=== PATIENT | female | born 1975 | race African-American/Black ===

== ENCOUNTER 2017-11-02 16:45 | Inpatient (IN) | payer OTHER ==
[2017-11-02] MEDS ORDERED: Morphine 4 MG/ML VIAL ONE ×2 (17:04→18:50)
[2017-11-02] MEDS ORDERED: Ondansetron HCl/PF 4 MG/2 ML Vial ONE (17:04)
--- NOTE | 2017-11-02 17:29 | RAD ---
EXAM: ONE VIEW CHEST 11/02/17 HISTORY: Sepsis. COMPARISON: None. FINDINGS: Normal cardiac silhouette. The pulmonary vessels and hilum are normal. Costophrenic angles are clear. No mass. No consolidation. Bilateral nipple shadows are noted. No pneumothorax or osseous abnormalit ies. IMPRESSION: No acute cardiopulmonary process. POS: [facility]
[2017-11-02 17:50] LABS: #Eosinphils 0.1 thou/uL (0.0-0.7); #Lymphocytes 1.7 thou/uL (1.20-3.40); #Neutrophils 10.6 thou/uL (1.40-6.50); %Basophils 0.2 % (0.0-1.0); %Eosinophils 0.5 % (0.0-10.0); %Lymphocytes 12.5 % (21.0-51.0); %Monocytes 7.5 % (0.0-10.0); Hematocrit 39.2 % (36.0-47.0); Mean Platelet Volume 6.9 fL (7.4-10.4); Red Blood Cell (RBC) Count 4.28 mill/uL (4.20-5.40); White Blood Cell (WBC) Count 13.3 thou/uL (4.8-10.8)
[2017-11-02 18:00] LABS: Lactic Acid - Sepsis 3.2 mmol/L (0.5-2.2)
[2017-11-02 18:03] LABS: ALT (SGPT) 91 U/L (8-55); AST (SGOT) 50 U/L (5-34); Alkaline Phosphatase 81 U/L (40-150); Anion Gap 13 mmol/L (10-20); BUN (Urea Nitrogen) 16 mg/dL (7.0-18.7); Bilirubin, Total 0.2 mg/dL (0.2-1.2); Calc. Creatinine Clearance 0 mL/min (70-130); Calcium 9.3 mg/dL (7.8-10.44); Carbon Dioxide 20 mmol/L (22-29); Chloride 110 mmol/L (98-107); Estimated GFR-MDRD 86; Globulin 3.5 g/dL (2.4-3.5); Protein, Total 7.4 g/dL (6.0-8.3)
--- NOTE | 2017-11-02 18:09 | CT ---
EXAM: ABDOMEN CT WITH CONTRAST PELVIC CT WITH CONTRAST 11/02/17 HISTORY: Persistent lower abdominal pain, x1 week. Constipation. Hypotension. COMPARISON: None. TECHNIQUE: An abdomen and pelvic CT are performed with IV contrast. Enteric contrast was not administered. Coron al reformatted images are submitted for interpretation. FINDINGS: ABDOMEN CT: The lung bases are clear. Heart size is within normal limits. No pericardial fluid. The descending t horacic aorta and abdominal aorta have an overall normal caliber. No periaortic fat stranding. Intra and extrahepatic portal vein is patent. Liver, spleen, pancreas, and adrenal glands have appropriate enhancement. Symmetric enhancement of the kidneys. Bilaterally, no obstructive uropathy. Decreased intra-abdominal fat limits evaluation for inflammatory change. No mesenteric mass, lymphade nopathy, free air or free fluid. Suboptimal evaluation of the alimentary canal due to the absence of oral contrast. There is mucosal thickening involving the gastric antrum and proximal duodenum. Correl ate for gastric ulcer and peptic ulcer disease. No evidence of bowel perforation. Multiple small jay l loops, normal in caliber. There appears to be fecalization of the terminal ileum, likely due to inc ompetent ileocecal valve, rather than obstruction. There is a tubular structure emanating from the ce francisca apex that is only partially visualized and may represent the appendix. No obvious inflammation. T here is fecal material in the cecum. Colon does not appear to be distended. The colon is difficult to evaluate. However, there does appear to be some mucosal thickening involving the sigmoid colon and r ectum. Correlate for possible proctitis. There is a ventral abdominal wall hernia containing mesenteric fat. There is edema involving the megan iated mesentery. No evidence of bowel herniation. The defect at the level of the peritoneal lining is approximately [address]: The urinary bladder is unremarkable. There is a heterogeneous appearing uterus. Hypodensity involvin g the lower uterus may represent a necrotic uterine leiomyoma measuring 2.7 x 2.3 cm. There is a hypo density in the left adnexa which may represent a left ovarian cyst, measuring 1.7 cm. There are no lytic or blastic lesions in the osseous structures. IMPRESSION: 1. Mucosal thickening involving the stomach and proximal duodenum. Correlate for gastritis versu s gastric ulcer and peptic ulcer disease. 2. Suggestion of normal caliber appendix. 3. Mucosal thickening involving the sigmoid colon and rectum. Correlate for proctitis. Evaluatio n of the entire alimentary canal is limited by lack of oral contrast and overall decrease intra-abdom inal fat. 4. Hypodensity involving the lower uterine segment which may represent a necrotic uterine leiomy max. Correlation made with pelvic ultrasound in 2012 does suggest a possible leiomyoma. 5. Ventral abdominal wall hernia containing mesenteric fat. There is edema, correlate for mesen teric ischemic. POS: [facility]
[2017-11-02] MEDS ORDERED: Piperacillin/Tazobactam 4.5 GM in Sodium Chloride 0.9% 100 ML IVPB SCH (19:15)
[2017-11-02] MEDS ORDERED: Ondansetron HCl/PF 4 MG/2 ML Vial IVP PRN (21:23)
[2017-11-02] MEDS ORDERED: Ondansetron ODT 4 MG TAB SL PRN (21:23)
[2017-11-02] MEDS: Dextrose 5 % And 0.9 % NaCl 1,000 ML IV SCH (22:01)
[2017-11-02 22:39] VITALS: BMI 20.6
[2017-11-03] MEDS ORDERED: Piperacillin/Tazobactam 3.375 GM in Sodium Chloride 0.9% 100 ML IVPB SCH ×2 (02:30→15:15)
[2017-11-03] MEDS: Morphine 2 mg/2ml in 0.9% NaCl PF SYRINGE IVP PRN ×2 (04:39→07:19)
[2017-11-03] MEDS: Dextrose 5 % And 0.9 % NaCl 1,000 ML IV SCH (05:42)
[2017-11-03] MEDS ORDERED: ISOVUE-370 76%-LOCM 1 ML ONE (10:04)
--- NOTE | 2017-11-03 10:50 | ULT ---
RIGHT UPPER QUADRANT ULTRASOUND: Date: 11-03-17 Comparison: None. History: Right upper quadrant pain. Technique: Multiplanar grayscale sonographic imaging of the right upper quadrant obtained. FINDINGS: The imaged pancreas is unremarkable, the tail partially obscured by bowel gas. There is a vague round hypoechoic lesion in the right lobe of the liver measuring in the 1.6 x 1.4 x 1.5 cm range. There is a subtle hyper enhancing lesion on the CT examination performed 11-02-17, likel y correlating with the sonographic lesion. The right 11.1 cm in craniocaudal dimension and demonstrates no stone, hydronephrosis or mass. Gallbladder wall is normal in thickness. There is trace fluid adjacent to the gallbladder. Sonographi c Suarez's sign is negative. No gallstones are seen. The CBD measures in the 6 mm range, within tonia l limits. IMPRESSION: 1. No evidence for cholelithiasis or gallbladder thickening. Trace pericholecystic fluid is noted. 2. Round 1.6 cm hypoechoic lesion within the right lobe of the liver. This appears to represent a hyp erenhancing lesion on the 11-02-17 CT exam. The most likely consideration is a flash filling hemangiom a. In order to exclude a more aggressive malignant process, a short term follow up ultrasound is noemí man in 3 months. Code T POS: [facility]
--- NOTE | 2017-11-03 10:59 | ULT ---
PELVIC ULTRASOUND INCLUDING TRANSABDOMINAL AND TRANSVAGINAL IMAGING VASCULAR DUPLEX WITH COLOR AND SPECTRAL DOPPLER IMAGING: History: 42-year-old female with lower abdominal pain. Comparison: 12-14-11 FINDINGS: The uterus measures 11.2 x 7.0 x 5.8 cm. Endometrium approximates 1.3 cm. Right ovary measures 1.9 x 2.1 x 3.2 cm. Left ovary measures 1.6 x 2.1 x 2.9 cm. There is minimal fluid in the endometrium with a 1.7 x 2.3 x 2.4 cm diameter cystic focus in the uterine segment which appears to be contiguous to t he lower endometrial canal. This does correspond to the area of concern on the prior CT scan of . In review of prior ultrasound examination from 12-14-11, there was no evidence for a nabothian cys t in this region. It certainly does not look like a necrotic tumor although I am not certain as to th e etiology of this. Three to six month follow up pelvic ultrasound examination might be considered to evaluate for stability. Vascular duplex with color and spectral doppler imaging demonstrates vascular flow to both ovaries. IMPRESSION: Cystic focus in the lower uterine segment which appears to be contiguous with the lower endometrial c anal, not definitely seen on prior ultrasound examination from 2011, but does correspond to the area of low attenuation seen on prior CT scan of 11-02. I am not certain as to the etiology of this. I feel that if this would represent a nabothian cyst that it would have been seen on the prior study. Amberly ivably this could represent some other type of focal outpouching of the endometrial canal, but it cer tainly does not have an appearance suggesting that of necrotic tumor. Consider three to six month up pelvic ultrasound examination. Other findings as above. This was reviewed in consensus with Dr. Cao. POS: [facility]
--- NOTE | 2017-11-03 11:43 | HP ---
REASON FOR CHIEF COMPLAINT: Abdominal pain. HISTORY OF PRESENT ILLNESS: Ms. Dover is a 42-year-old woman with bilateral lower quadrant abdomin al pain for the past few weeks. It has been worse over the past week and she took a laxative to see if this would help and after having a bowel movement the pain actually got worse so she came into the emergency room. She states that she has not had any diarrhea except for just after the laxative. S he denies any fevers or chills, although she will occasionally have a flash of feeling hot at night. She has not had any nausea or vomiting and has been able to eat normally. Since receiving pain medi cation and antibiotics in the emergency room, the pain is somewhat better today, but it is still pres ent. She states that it has not really gone away since its onset. She cannot think of any injury or trauma precipitating the pain, no alleviating factors are identified. She does note that she had an umbilical hernia which was fixed after her last 20 years ago and that she noticed that the hernia came back a few weeks ago and that the pain came on shortly after her hernia came back. PAST MEDICAL HISTORY: None. PAST SURGICAL HISTORY: x2 and repair of umbilical hernia x1. She is unsure whether mesh w as used. FAMILY HISTORY: Noncontributory. SOCIAL HISTORY: She is a smoker, but only smokes about a pack a week. She does not drink heavily phillips bitually, but does report heavier than usual alcohol use for about 2 weeks recently. She has smoked marijuana, but not for the past month or so and denies other drug use. ALLERGIES: She has an adverse drug reaction to HYDROCODONE, which causes itching as well as a LATEX allergy. MEDICATIONS: She does not take any medications on an outpatient basis. REVIEW OF SYSTEMS: Ten system review of systems is negative except per HPI. PHYSICAL EXAMINATION: VITAL SIGNS: The patient has been afebrile since admission. Heart rate was initially elevated at 12 0, but it is now 75, respirations 18, blood pressure 100/64, and 100% saturated on room air. GENERAL: Reveals a thin, healthy-appearing woman in no acute distress. She is not flushed or toxic, jaundiced or icteric. HEENT: Unremarkable. NECK: Supple, without lymphadenopathy or thyroid nodules. HEART: Regular in its rate and rhythm without murmurs, rubs or gallops. LUNGS: Clear to auscultation bilaterally. ABDOMEN: Soft and nondistended. She is tender to palpation in the right greater than left lower raimundo drant, but does not exhibit rigidity or rebound. The ER doctor reported that she had some guarding o n her admission, but she does not exhibit that today. She has a nonreducible tender umbilical hernia . The overlying skin is healthy in appearance. She has a healed lower midline incision without any other palpable hernias. EXTREMITIES: Warm and well perfused without edema. NEUROLOGIC: No focal deficits. PSYCHIATRIC: Alert, oriented, and appropriate. LABORATORY DATA: Her white count was mildly elevated on admission at 13, hematocrit 39. Electrolyte s are unremarkable. Her lactate was initially elevated at 3.2, but came down to 0.9 just with some I V fluids. AST and ALT are mildly elevated at 50 and 91 and other LFTs are all normal. A noncontrast CT at the time of admission showed an umbilical hernia containing fat only. There was some question able thickening of the stomach and the rectosigmoid, but no other abnormalities noted. The appendix was not clearly seen. ASSESSMENT: Incarcerated umbilical hernia, coinciding with the onset of the patient's abdominal pain . I feel this is most likely the cause of her abdominal pain, but since she has tenderness to palpat ion in the lower abdomen, I feel that better evaluation of the appendix and the ovaries is necessary. I have ordered a pelvic ultrasound as well as a CT with oral contrast; however, I feel that appendi citis is an unlikely explanation for her symptoms. Her LFTs are mildly elevated. She is not tender to palpation in the right upper quadrant, but I am going to check a gallbladder ultrasound to make mendez re she does not have cholelithiasis. She may just have mild alcoholic hepatitis given recent heavy a lcohol use. I do have her on the schedule for later today for an umbilical hernia repair. Since thi s is recurrent we will likely use mesh to repair it unless there is unhealthy appearing tissue in the hernia or if her appendix is abnormal and requires removal. The procedure of the umbilical hernia r epair was discussed in detail with the patient. Inherent risks were also discussed. These include b ut are not limited to bleeding, infection, risks of anesthesia, damage to nearby structures including bowel and blood vessels, and mesh infection requiring mesh explantation. She understands and accept s these risks and wishes to proceed. She is on scheduled antibiotics. All of her questions were ans wered.
--- NOTE | 2017-11-03 13:29 | CT ---
CT ABDOMEN AND PELVIS WITH IV CONTRAST: INDICATIONS: A 42-year-old female with lower quadrant abdominal pain, right greater than left. Concern for possib le appendicitis. The patient has a previous history of a prior . COMPARISON: Prior noncontrast CT of the abdomen and pelvis dated 11/02/2017 and pelvic ultrasounds from [facility] dated 12/14/2011 and 11/03/2017 TECHNIQUE: Multiple CT images were obtained of the abdomen and pelvis with IV and enteric contrast. Axial and c oronal reformatted images were constructed from the raw data. FINDINGS: ABDOMEN: There is bibasilar atelectasis. There is a small enhancing lesion within segment 7 of the right hepatic lobe, best seen on the campbell l images, measuring 1.5 cm, on image 72. No additional focal hepatic lesion is evident. The pancrea s, spleen, and adrenal glands are normal appearing. The kidneys are normal appearing. No free fluid or large lymph nodes are evident. PELVIS: There is a normal appendix in the right lower quadrant. The uterus is slightly enlarged and heterogeneous in appearance. There is a 1.6 cm involuting cyst within the right ovary. The left ad nexa is unremarkable. As seen on the comparison examination, there is a hypodense oval lesion involv ing the anterior lower uterine segment, near the expected region of the scar of the lower u terus, measuring 2.8 cm. No appreciable enhancement is noted within this lesion when compared to the most recent noncontrast exam. There is mild free fluid in the pelvis. The visualized small and lar ge bowel are unremarkable. There is a fat-containing paraumbilical hernia. No acute osseous abnorma lity is evident. IMPRESSION: 1. Normal appendix. 2. Nonenhancing cystic lesion involving the anterior lower uterine wall, near the expected region of the section scar. This appears to be fairly simple appearing on the recently performed pel vis ultrasound and may reflect a small seroma from a recently performed section. Recommend correlation. Alternatively, this may reflect an implanted endometrial cyst. A large high nabothian cyst could have a similar appearance. A completely cystic, degenerated leiomyoma of the lower anteri or uterine wall may potentially have this appearance. I would recommend a follow-up MRI of the pelvi s with and without contrast for additional characterization and documentation of resolution of this l esion. 3. Small enhancing lesion at the right hepatic dome is nonspecific. This can be seen with capillary type hemangiomas. This can also be seen with small FNH or small adenomas. Would recommend a follow -up MRI of the abdomen with and without contrast, utilizing a hemangioma protocol for additional antony acterization. CODE T POS: [facility]
[2017-11-03] MEDS ORDERED: Midazolam HCl 2 mg/2 ml Vial ONE (15:11)
[2017-11-03] MEDS ORDERED: Fentanyl 100 MCG/2 ML VIAL ONE ×2 (15:11→17:10)
[2017-11-03] MEDS ORDERED: Ondansetron HCl/PF 4 MG/2 ML Vial IVP PRN ×2 (15:13→17:02)
[2017-11-03] MEDS ORDERED: Bacitracin Zinc Ointment 30 gm TUBE ONE (15:14)
[2017-11-03] MEDS ORDERED: Bupivacaine/Epinephrine 0.25% 30 ML VIAL ONE (15:14)
[2017-11-03] MEDS ORDERED: Morphine 4 MG/ML VIAL SLOW IVP PRN ×2 (15:45)
[2017-11-03] MEDS: D5 1/2 NS w/20 mEq KCL 1,000 ML IV SCH ×2 (16:14→23:56)
[2017-11-03] MEDS ORDERED: Meperidine HCl/PF 25 MG/ML VIAL ONE (17:01)
[2017-11-03] MEDS ORDERED: Ketorolac Tromethamine 30 MG/ML VIAL IVP PRN (17:02)
[2017-11-03] MEDS ORDERED: Promethazine HCl 25 MG/ML VIAL SLOW IVP PRN (17:02)
[2017-11-03] MEDS ORDERED: Meperidine HCl/PF 25 MG/ML VIAL SLOW IVP PRN ×2 (17:02)
[2017-11-03] MEDS ORDERED: Promethazine HCl 25 MG/ML VIAL IM PRN (17:02)
[2017-11-03] MEDS ORDERED: Glycopyrrolate 0.2 MG/ML 5 ML SYRINGE ONE (17:05)
[2017-11-03] MEDS ORDERED: Propofol 200 MG/20 ML VIAL ONE (17:05)
[2017-11-03] MEDS ORDERED: Dexamethasone 20 MG/5 ML VIAL ONE (17:05)
[2017-11-03] MEDS ORDERED: Lidocaine 1% PF 5 ML VIAL ONE (17:05)
[2017-11-03] MEDS ORDERED: Ondansetron HCl/PF 4 MG/2 ML Vial ONE (17:05)
[2017-11-03] MEDS ORDERED: traMADol HCl 50 MG TAB PO PRN (18:21)
[2017-11-03] MEDS: traMADol HCl 50 MG TAB PO PRN (20:59)
[2017-11-04] MEDS: D5 1/2 NS w/20 mEq KCL 1,000 ML IV SCH ×2 (06:52→17:57)
[2017-11-04] MEDS: traMADol HCl 50 MG TAB PO PRN (07:17)
[2017-11-04 07:43] VITALS: TEMP 98.5
[2017-11-04] MEDS ORDERED: HYDROcodone/Acetaminophen 5/325 mg Tablet PO PRN (09:32)
[2017-11-04] MEDS ORDERED: Acetaminophen 325 MG TAB PO PRN ×2 (09:32)
[2017-11-04] MEDS ORDERED: diphenhydrAMINE 25 MG CAP PO PRN (09:32)
[2017-11-04] MEDS ORDERED: Ibuprofen 600 MG TAB PO PRN (09:32)
[2017-11-04 12:31] VITALS: BP 114/69
--- NOTE | 2017-11-11 16:13 | PDOC.OP ---
Operative Note - Operative Note Operative Note: PROCEDURE: Umbilical hernia repair. DATE OF PROCEDURE: 11/03/2017 SURGEON: Moise Restrepo M.D. PREOPERATIVE DIAGNOSES: Umbilical hernia POSTOPERATIVE DIAGNOSIS: Umbilical hernia HISTORY: Patient with symptomatic umbilical hernia for which operative repair possibly with mesh is recommended. PROCEDURE IN DETAIL: After informed consent was obtained and appropriate preoperative antibiotics were administered the patient was taken to the operating room and placed in the supine position. General anesthesia by laryngeal mask airway was administered and the abdomen was prepped and draped in the standard sterile fashion. Local anesthesia was infused the skin and subcutaneous tissue surrounding the umbilicus. A periumbilical incision was made and dissection carried down to the hernia sac which was dissected free of the overlying dermis and the surrounding subcutaneous tissues. The hernia was traced down to the fascia which was cleared circumferentially. The hernia sac was dunked back into the abdominal cavity through the tiny fascial defect. Due to the very small size of the fascial defect and the healthy appearance of the fascia, the decision was made not to place mesh since this would have required substantially increasing the size of the fascial defect. The fascial edges were then reapproximated with interrupted and [id number] Ethibond sutures. The subcutaneous tissues were reapproximated with 3-0 Monocryl suture and the skin was closed with 4-0 subcuticular Monocryl suture. Dermabond dressings were placed and once these were dry a cotton ball and Tegaderm dressing was placed. The patient was extubated and taken to the recovery room in good condition. There were no complications. There were no specimens. Estimated blood loss was minimal.
== END 2017-11-04 16:55 | disposition home or self-care (01) | DRG 355 ==
LOC: ERS 16:45 → SURG A 21:05
PROVIDERS: ADMIT Surgery; ATTEND Surgery
PROC: 0WQF0ZZ Repair Abdominal Wall, Open Approach (ICD-10-PCS; principal; 2017-11-03)
DX: K42.0 Umbilical hernia with obstruction, without gangrene (principal); D18.03 Hemangioma of intra-abdominal structures; F17.210 Nicotine dependence, cigarettes, uncomplicated; K76.9 Liver disease, unspecified; F10.10 Alcohol abuse, uncomplicated
CPT/HCPCS: 36415; 71010; 74177; 76705; 76856; 80053; 83605; 85025; 87040; 93005; 94760; 96360; 96361; 96365; 96375; 96376; 99406; J1100; J2001; J2175; J2250; J2270; J2405; J2543; J2704; J3010; J7050